=== PATIENT | female | born 1995 | race Hispanic/Latino ===

== ENCOUNTER 2025-03-02 21:42 | Emergency (ER) | payer SELFPAY ==
[~2025-03-02] VITALS: Ht 162.6 cm; Wt 87.5 kg
[2025-03-02 21:46] VITALS: TEMP 96.9
--- NOTE | 2025-03-02 22:05 | ERN ---
ED Note History of Present Illness Stated Complaint: C/O VAGINAL BLEEDING ONSET YESTERDAY Chief Complaint: Vaginal Problems/Bleeding Time Seen by MD: 21:46 Time Seen by Midlevel: 21:46 Dictation: The patient is a 29-year-old female with a history of diabetes who presents to the emergency department with a denies of vaginal bleeding and suprapubic abdominal pain. Patient reports that yesterday she started with vaginal spotting around 1:00 p.m. and now is having more vaginal bleeding with clots. Reports saturating 2 pads in the last hour. Reports she took a test at home and was positive. Allergies: Coded Allergies: No Known Allergies (Unverified Allergy, Unknown, 03/02/25) Past Medical History Past Medical History: Diabetes-Type II Surgical History: None LMP: Dec 04, 2024 RN Note Reviewed/Agreed w/PFSH: Yes Review of System Dictation Constitutional: Negative for fever,chills, and weight loss Eyes: Negative for injury, pain,redness, and discharge ENT: Negative for injury,pain or swelling Cardiovascular: Negative for chest pain, palpitations, and edema Respiratory: Negative for shortness of breath, cough, and wheezing, Abdomen/GI: Negative for nausea, vomiting, diarrhea, and constipation positive for suprapubic abdominal pain Back: Negative for injury and pain : Negative for injury, and discharge positive for vaginal bleeding MS/Extremity: Negative for injury and deformity Skin: Negative for rash, and discoloration Neuro: Negative for headache, weakness, numbness, tingling, and seizure Psych: Negative for suicide ideation, homicidal ideation, and hallucinations Initial Vital Sign VS Vital Signs Date Time Temp Pulse Resp B/P (MAP) Pulse Ox O2 Delivery O2 Flow Rate FiO2 03/02/25 21:46 97.0 94 20 137/95 100 Room Air 03/02/25 21:46 0 21 Physical Exam Dictation Vital Signs reviewed General Appearance: Alert, oriented x 3, no acute distress, well developed, nourished. Head and Face: non-traumatic. Eyes: PERRL, pink conjunctivas, eyelid no trauma, anterior chamber with arcus senilis. Ears: Pinnas intact and no signs of trauma or erythema ear canals clear and no discharge TM no erythema Nose: No discharge, no bleeding. Oropharynx: Mouth normal, tongue pink. pharynx clear,no erythema, tonsils no exudates, no abscesses noted, mucous membrane moist Neck: Supple, non-tender, no thyromegaly, no masses, no JVD, no bruits Breast:Deferred Chest:No tenderness, no crepitus, no paradoxical movement, no retractions Lungs:Clear, well-ventilated, symmetric, no rales, no wheezing, no rhonchi, no stridor, good breath sounds bilaterally Heart: Regular rate, regular rhythm, no murmur, no gallops Vascular: no peripheral edema, Abdomen: Soft, positive bowel sounds, nondistended, no guarding, nontender, no rebound, no masses no hepatomegaly, no splenomegaly, no Maldonado's sign, no hernias. Rectal: Deferred Genital: Deferred Neurological: Normal speech, motor function intact, sensory function intact Musculoskeletal: Neck nontender, full range of motion, back nontender, full range of motion, Extremities: nontender, full range of motion Skin: Color pink, dry, no turgor, no rash, no lacerations, no abrasions, no contusions. Lymphatic: Deferred Results (Laboratory/Radiology) Laboratory/Radiology Laboratory Tests Test 03/02/25 22:08 03/02/25 23:52 White Blood Count 5.1 K/uL (4.8-10.8) Red Blood Count 5.09 MIL/uL (4.00-5.50) Hemoglobin 15.7 g/dL (12.0-16.0) Hematocrit 44.6 % (36-48) Mean Corpuscular Volume 87.6 fL (79-99) Mean Corpuscular Hemoglobin 30.8 pg (27.0-33.0) Mean Corpuscular Hemoglobin Concent 35.2 g/dL (32.0-36.0) Red Cell Distribution Width 11.9 % (11.0-15.5) Platelet Count 272 K/uL (130-400) Mean Platelet Volume 9.7 fL (7.5-10.5) Immature Granulocyte % (Auto) 0.4 % (0-1) Neutrophils (%) (Auto) 59.6 % (40.0-77.0) Lymphocytes (%) (Auto) 28.4 % (21.0-51.0) Monocytes (%) (Auto) 6.1 % (3.0-13.0) Eosinophils (%) (Auto) 4.9 % (0.0-8.0) Basophils (%) (Auto) 0.6 % (0.0-5.0) Neutrophils # (Auto) 3.0 K/uL (1.8-7.7) Lymphocytes # (Auto) 1.5 K/uL (1.0-4.8) Monocytes # (Auto) 0.3 K/uL (0.1-1.0) Eosinophils # (Auto) 0.25 K/uL (0.00-0.70) Basophils # (Auto) 0.03 K/uL (0.00-0.20) Absolute Immature Granulocyte (auto 0.02 K/uL (0-1) Nucleated Red Blood Cells 0.0 % (0.0-0.19) Sodium Level 136 mmol/L (136-145) Potassium Level 3.5 mmol/L (3.5-5.1) Chloride Level 97 mmol/L (101-111) L Carbon Dioxide Level 28 mmol/L (21-32) Blood Urea Nitrogen 16 mg/dL (7-18) Creatinine 1.0 mg/dL (0.5-1.0) Glomerular Filtration Rate Calc 77 mL/min (>90) Random Glucose 205 mg/dL (70-105) H Total Calcium 9.4 mg/dL (8.5-10.1) Human Chorionic Gonadotropin, Quant 0 mIU/mL (0-5) Urine Color DARK-BROWN (YELLOW) Urine Appearance TURBID (CLEAR) Urine pH 5.5 (5.0-8.0) Urine Specific [place] 1.028 (1.001-1.031) Urine Protein 70 mg/dL (NEGATIVE) H Urine Glucose (UA) NEGATIVE mg/dL (NEGATIVE) Urine Ketones NEGATIVE mg/dL (NEGATIVE) Urine Occult Blood LARGE (NEGATIVE) H Urine Nitrate 1+ (NEGATIVE) H Urine Bilirubin NEGATIVE mg/dL (NEGATIVE) Urine Urobilinogen 0.2 mg/dL (0.2-1.0) Urine Leukocyte Esterase 75 Levon/uL (NEGATIVE) H Labs Reviewed?: Yes ED Course ED Course Orders Procedure Category Date Status Time Cbc With Differential LAB 03/02/25 Complete 21:53 Hcg,Quantitative LAB 03/02/25 Complete 21:53 0.9%Nacl 1000ml (Ns PHA 03/02/25 Complete 1000ml) 22:00 Acetaminophen 325 Tab PHA 03/02/25 Complete (Tylenol 325mg Tab 22:00 Basic Metabolic Panel LAB 03/02/25 Complete 21:53 Urinalysis Profile LAB 03/02/25 In Process 21:53 Culture Urine [place] 03/03/25 In Process 00:10 Current Medications Medications (Trade) Dose Ordered Sig/Zari Route PRN Reason Start Time Stop Time Status Last Admin Dose Admin Acetaminophen (TYLenol 325MG TAB) 650 mg ONCE ONCE PO 03/02/25 22:00 03/02/25 22:09 DC 03/02/25 22:16 Sodium Chloride 1,000 ml @ 0 mls/hr ONCE ONCE IV 03/02/25 22:00 03/02/25 22:09 DC 03/02/25 22:16 Vital Signs Date Time Temp Pulse Resp B/P (MAP) Pulse Ox O2 Delivery O2 Flow Rate FiO2 03/03/25 00:02 81 18 141/92 100 Room Air* 0 21 03/02/25 21:46 97.0 94 16 137/95 100 Room Air* 0 21 03/02/25 21:46 97.0 94 20 137/95 100 Room Air Medical Decision Making MDM The patient is a 29-year-old female with a history of diabetes who presents to the emergency department with a denies of vaginal bleeding and suprapubic abdominal pain. Patient reports that yesterday she started with vaginal spotting around 1:00 p.m. and now is having more vaginal bleeding with clots. Reports saturating 2 pads in the last hour. Reports she took a test at home and was positive. CBC showed no leukocytosis, no anemia, chemistry showed no electrolyte imbalance, hCG of 0. Patient's symptoms probably related to her menstrual cycle. On physical exam patient is in no acute distress, nontender abdomen to palpation. Patient with no tachycardia or hypo tension. Patient instructed to follow up with OBGYN. To return if symptoms worsen. urinalysis positive for leukocyte esterase and nitrites. Spoke to patient about her urinary tract infection and sent antibiotics due for pharmacy. Differential diagnosis: Menstrual cycle, anemia, threaten , Need for hospitalization: Patient does not meet criteria for hospitalization. There are no social concerns with this patient. DX & DISP Disposition: Discharge Departure Impression: Primary Impression: Menses, irregular Additional Impressions: Vaginal bleeding, UTI (urinary tract infection) Condition: Stable Scripts Nitrofurantoin Monohyd/M-Cryst (Macrobid 100 mg Capsule) 100 Mg Capsule 1 CAP PO BID for 5 Days, #10 CAP 0 Refills Prov: FELICIA BENITEZ 03/03/25 Additional Instructions: Your labs were unremarkable. Please follow up with your OBGYN in 1-2 days. If you develop severe vaginal bleeding, dizziness, weakness please return to ER. FOLLOW-UP WITH PRIMARY CARE PROVIDER IN 1 TO 2 DAYS. TAKE MEDICATIONS DIREC LAURITA HERE IN THE EMERGENCY ROOM. OKAY TO CONTINUE HOME MEDICATIONS UNLESS OTHERWISE DISCUSSED DURING YOUR VISIT IN THE EMERGENCY ROOM TODAY. RETURN TO YOUR NEAREST EMERGENCY ROOM IF SYMPTOMS WORSEN OR IF THERE IS NO IMPROVEMENT. CALL 911 IF YOU NEED IMMEDIATE ASSISTANCE. TAKE TYLENOL [id number] NEEDED AND IF NO CONTRAINDICATIONS ARE PRESENT. INCREASE ORAL HYDRATION. A WOUND CULTURE OR URINE CULTURE WAS ORDERED HERE IN THE EMERGENCY ROOM DEPARTMENT PLEASE FOLLOW-UP WITH PRIMARY CARE PROVIDER AND ADVISE THEM TO GET REPEAT PORTS FROM OUR FACILITY. IF YOU HAD ANY MARCUS WRAP/SPLINTS THAT WERE APPLIED HERE, PLEASE DO NOT REMOVE THEM UNTIL YOU SEE YOUR PRIMARY CARE OR SPECIALTY. Referrals: MISHEL DARNELL MD (PCP) Time of Disposition: 23:56 I have reviewed the case, and I agree with, Diagnosis and Plan FELICIA BENITEZ Mar 02, 2025 22:05
[2025-03-02] MEDS: 0.9%NACL 1000ML 1,000 ML IV ONE (22:16)
[2025-03-02 22:18] LABS: IMMATURE GRANULOCYTE ABSOLUTE 0.02 K/uL (0-1); NUCLEATED RED BLOOD CELLS 0.0 % (0.0-0.19); PLATELET COUNT (AUTO) 272 K/uL (130-400); RED BLOOD CELL COUNT(AUTO) 5.09 MIL/uL (4.00-5.50); RED CELL DISTRIBUTION WIDTH 11.9 % (11.0-15.5); WHITE BLOOD COUNT (AUTO) 5.1 K/uL (4.8-10.8)
[2025-03-02 22:40] LABS: CREATININE 1.0 mg/dL (0.5-1.0); GLOMERULAR FILTR. RATE CALC 77.0 mL/min (>90); GLUCOSE,RANDOM 205.0 mg/dL (70-105); HCG,QUANTITATIVE 0.0 mIU/mL (0-5); SODIUM SERUM 136.0 mmol/L (136-145); UREA NITROGEN, BLOOD 16.0 mg/dL (7-18)
[2025-03-03 00:02] VITALS: BP 141/92; PULSE 81; RESP 18; O2SAT 100
[2025-03-03 00:08] LABS: APPEARANCE,URINE TURBID (CLEAR); GLUCOSE, URINE (UA) NEGATIVE (NEGATIVE); LEUKOCYTE ESTERASE ,URINE 75 Leu/uL (NEGATIVE); NITRATE,URINE 1+ (NEGATIVE); OCCULT BLOOD,URINE LARGE (NEGATIVE)
[2025-03-03 00:09] LABS: ADD UA MICROSCOPIC YES
[2025-03-03 00:13] LABS: SQUAMOUS EPITHELIAL CELL,UR MANY /HPF (0-2); WBC CLUMP MANY /HPF (0-1)
[2025-03-03] MEDS ORDERED: NITR100C4 PO (00:14)
== END 2025-03-03 00:09 | disposition home or self-care (01) ==
LOC: EDH 21:42
DX: N39.0 Urinary tract infection, site not specified (principal); N93.9 Abnormal uterine and vaginal bleeding, unspecified; N92.6 Irregular menstruation, unspecified; R10.2 Pelvic and perineal pain
CPT/HCPCS: 99283; 96360; 96361; 80048; 84702; 85025; 87086 ×2; 87186; 81001; 36415; J7030